=== PATIENT | female | born 1995 | race American Indian/Alaskan Native ===

== ENCOUNTER 2017-06-08 22:49 | Emergency (ER) | payer SELFPAY ==
[2017-06-08 22:49] VITALS: BMI 32.9
== END 2017-06-08 23:23 | disposition left against medical advice (07) ==
LOC: ED 22:49
DX: Z02.89 Encounter for other administrative examinations (principal); R10.9 Unspecified abdominal pain

== ENCOUNTER 2017-08-18 14:11 | Emergency (ER) | payer MEDICAID ==
[2017-08-18 14:42] VITALS: BMI 32.1
[2017-08-18 14:43] VITALS: RESP 18; O2SAT 100
[2017-08-18] MEDS ORDERED: Sodium Chloride 0.9% 500 ML IV STA (14:47)
[2017-08-18] MEDS ORDERED: DiphenhydrAMINE 50 mg/ml Inj IVP STA (14:47)
--- NOTE | 2017-08-18 14:48 | ED PDOC ---
Arrival/HPI - General Time Seen by Provider: 08/18/17 14:36 Historian: Patient - History of Present Illness Narrative History of Present Illness (Text): 08/18/17 15:01 22 yo female w/PMHx of asthma, pancreatitis come in for evaluation of retrosternal chest tightness developed since yesterday. Pt sts, " feels also dizzy little with tingling over my arms and legs". Pt sts, chest tightness constant since yesterday " feels like not enough air". Pt sts, " my mother and boyfriend in this hospital now, feels little nervous now". Otherwise, pt denies fever, chills, headache, visual changes, focal deficits, recent illness, neck pain, SOB, dyspnea, wheezing, cough, palpitation, diaphoresis, abd. pain, N/V/D , back pain. Ambulate to Ed for evaluation, appears comfortable, smiling, not in any apparent distress. Past Medical History - Provider Review Nursing Documentation Reviewed: Yes - Travel History Have you recently traveled outside [place] w/in the past 3 mons?: No - Tetanus Immunization Tetanus Immunization: Up to Date - Cardiac Hx Cardiac Disorders: No - Pulmonary Hx Respiratory Disorders: Yes Hx Asthma: Yes - Neurological Hx Neurological Disorder: No - HEENT Hx HEENT Disorder: No - Renal Hx Renal Disorder: No - Endocrine/Metabolic Hx Endocrine Disorders: No - Hematological/Oncological Hx Blood Disorders: No - Integumentary Hx Dermatological Disorder: No - Musculoskeletal/Rheumatological Hx Musculoskeletal Disorders: No - Gastrointestinal Hx Gastrointestinal Disorders: Yes Hx Pancreatitis: Yes - Genitourinary/Gynecological Hx Genitourinary Disorders: Yes (ovarian cyst) - Psychiatric Hx Psychophysiologic Disorder: Yes Hx Depression: Yes Hx Substance Use: No - Surgical History Hx Thyroidectomy: (cyst removal) - Anesthesia Hx Anesthesia: No Family/Social History - Physician Review Nursing Documentation Reviewed: Yes Family/Social History: No Known Family HX Smoking Status: Current Some Days Smoker Hx Alcohol Use: Yes (pt was drinking daily until last week) Hx Substance Use: No Allergies/Home Meds Allergies/Adverse Reactions: Allergies Penicillins Allergy (Verified 10/09/16 09:35) RASH Review of Systems - Review of Systems Constitutional: Normal Eyes: Normal ENT: Normal Respiratory: Normal. absent: SOB, Cough, Sputum, Wheezing Cardiovascular: Chest Pain. absent: Palpitations, Edema, Calf Pain, Syncope Gastrointestinal: Normal Genitourinary Female: Normal Musculoskeletal: Normal Skin: Normal Neurological: Normal Endocrine: Normal Hemo/Lymphatic: Normal Psychiatric: Normal Physical Exam Vital Signs Temp Pulse Resp BP Pulse Ox 08/18/17 18:00 98.6 F 80 18 138/80 100 08/18/17 16:11 98.6 F 80 18 138/80 100 08/18/17 14:20 98.4 F 79 18 138/90 100 Temperature: Afebrile Blood Pressure: Normal Pulse: Regular Respiratory Rate: Normal Appearance: Positive for: Well-Appearing, Non-Toxic, Comfortable Pain Distress: None Mental Status: Positive for: Alert and Oriented X 3 - Systems Exam Head: Present: Normocephalic Conjunctiva: Present: Normal Mouth: Present: Moist Mucous Membranes Pharnyx: No: ERYTHEMA, EXUDATE Neck: Present: Trachea Midline. No: JVD, Bruit (B/L) Respiratory/Chest: Present: Clear to Auscultation, Good Air Exchange. No: Respiratory Distress, Accessory Muscle Use Cardiovascular: Present: Regular Rate and Rhythm, Normal S1, S2. No: Murmurs, Irregular Rhythm Abdomen: Present: Normal Bowel Sounds. No: Tenderness, Distention, Peritoneal Signs, Rebound, Guarding Back: No: CVA Tenderness Upper Extremity: Present: Normal ROM, NORMAL PULSES. No: Deformity Lower Extremity: Present: NORMAL PULSES, Normal ROM. No: Edema, CALF TENDERNESS , Swelling, Deformity Neurological: Present: GCS=15, Speech Normal, Normal Sensory Function, Norm Deep Tendon Reflexes Skin: Present: Warm, Dry, Normal Color. No: Rashes Psychiatric: Present: Alert, Oriented x 3 Medical Decision Making ED Course and Treatment: 08/18/17 17:10 DDimer results review and appears high. Blood work results review with pt, explained, CTA r/o PE ordered. Delay in pt's evaluation due to delay in imaging. Pt was able to underwent imaging at 19:13, although refuses to wait for results. Pt sts, " feels better " and wish to go home now without results. Risk of leaving discussed with patient including complication of unknown condition and/or sudden . Pt was given time to ask question and received complete answer. Pt accepts risks and wish to F?u with her PMD for further evaluation and tx. Pt advised to return to ED at any time to complete evaluation. Pt is stable for discharge at this time AMA. - Lab Interpretations Lab Results: 08/18/17 15:10 08/18/17 15:10 Lab Results 08/18/17 15:10: D-Dimer, Quantitative 3.35 H 08/18/17 15:10: Sodium 142, Potassium 4.3, Chloride 104, Carbon Dioxide 31, Anion Gap 11, BUN 12, Creatinine 0.9, Est GFR ( Amer) > 60, Est GFR (Non- Af Amer) > 60, Random Glucose 68 L, Calcium 9.4, Total Bilirubin 0.4, AST 32, ALT 25, Alkaline Phosphatase 69, Lactate Dehydrogenase 494, Total Creatine Kinase 174, Troponin I < 0.01, Total Protein 7.2, Albumin 4.4, Globulin 2.9, Albumin/Globulin Ratio 1.5 08/18/17 15:10: PT 11.4, INR 1.06, APTT 28.3 08/18/17 15:10: WBC 5.4 D, RBC 5.01, Hgb 13.4, Hct 41.2, MCV 82.2, MCH 26.7, MCHC 32.5, RDW 13.1, Plt Count 259, MPV 9.9, Gran % 41.5 L, Lymph % (Auto) 43.6 H, [place] % (Auto) 6.6 H, Eos % (Auto) 8.1 H, Baso % (Auto) 0.2, Gran # 2.26, Lymph # 2.4, [place] # 0.4, Eos # 0.4, Baso # 0.01 08/18/17 14:51: Urine Color Yellow, Urine Appearance Clear, Urine pH 6.0, Ur Specific [place] >= 1.030, Urine Protein Trace H, Urine Glucose (UA) Negative, Urine Ketones Negative, Urine Blood Negative, Urine Nitrate Negative, Urine Bilirubin Negative, Urine Urobilinogen 1.0 H, Ur Leukocyte Esterase Negative, Urine RBC Negative, Urine WBC Negative, Ur Epithelial Cells 10 - 12, Urine Other Mucus, Urine HCG, Qual Negative - RAD Interpretation Narrative RAD Interpretations (Text): 08/18/17 21:35 [facility] Division of Radiology [address] [place] [address] Tel. no. Patient Name: DELVIN SAN Pt. Address: [address] [place] [address] Rec #: [id number] [place] [address]: Chuyita Sandhu Pt CELL Order Location: ED : 1995 Female Age: 22 Order #: [id number] Reason for exam: chest tightness CT Scan ANGIO CHEST PE PROTOCOL Exam Date: 08/18/17 This imaging exam was performed at [facility] EXAM: CT Angiography Chest With Intravenous Contrast EXAM DATE/TIME: 08/18/2017 5:09 PM CLINICAL HISTORY: 22 years old, female; Pain; Chest pain; Type not specified; Additional info: Chest tightness TECHNIQUE: Axial computed tomographic angiography images of the chest with intravenous contrast using pulmonary embolism protocol. All CT scans at this facility use one or more dose reduction techniques, viz.: automated exposure control; ma/kV adjustment per patient size (including targeted exams where dose is matched to indication; i.e. head); or iterative reconstruction technique. MIP reconstructed images were created and reviewed. Coronal and sagittal reformatted images were created and reviewed. CONTRAST: 100 mL of OMNI 350 administered intravenously. COMPARISON: Recent chest radiographs of 08/18/2017 4:09 PM FINDINGS: LIMITATIONS: Mild respiratory motion artifact. PULMONARY ARTERIES: Contrast opacification of the pulmonary arteries is adequate, and there are no filling defects seen to suggest pulmonary embolism. AORTA: Exam is nondiagnostic for the detection of aortic dissection because of suboptimal enhancement of the aorta. LUNGS:No evidence of significant focal consolidation/infiltrate in the lungs. No evidence of diffuse pulmonary vascular congestion. Patent large airways. PLEURAL SPACE: No pneumothorax or pleural effusions seen. HEART: No evidence of significant pericardial effusion. BONES/JOINTS: No acute bony abnormality identified. SOFT TISSUES: No acute abnormality of the visualized soft tissues seen. LYMPH NODES: No evidence of diffuse lymphadenopathy. PANCREAS: Extensive tiny calcifications are seen in the pancreas diffusely, compatible with chronic pancreatitis. Best seen on image 203 of series 3, there is a suspected 2.5 x 1 cm cystic/fluid density masslike area in the proximal pancreatic body, which could represent a small pseudocyst. There is no definite CT evidence of acute pancreatitis. IMPRESSION: - No evidence of pulmonary embolism or other significant acute abnormality in the chest. - Findings compatible with chronic pancreatitis. Suspected 2.5 x 1 cm cystic mass in the proximal pancreas, which could represent a pseudocyst. Consider followup CT abdomen and pelvis for further evaluation, not necessarily on an emergent basis. - See above for remaining findings. Dictated By: Chasidy Obrien MD Dictated Date/Time: 08/18/172039 Signed By: Chasidy Obrien MD Date Signed: 2039 Transcribed By: ALEX Transcribe Date/Time : 08/18/172039 [facility]/MAXINE Radiology Orders: 08/18/17 14:46 CHEST TWO VIEWS (PA/LAT) [RAD] Stat 08/18/17 17:09 ANGIO CHEST PE PROTOCOL [CT] Stat IMPRESSION: No active disease. - EKG Interpretation EKG Interpretation (Text): 08/18/17 14:18 SR@83/min, NAD, no acute T wave or ST-T changes. - Medication Orders Current Medication Orders: Discontinued Medications Diphenhydramine HCl (Benadryl) 25 mg IVP STAT STA Stop: 08/18/17 14:48 Last Admin: 08/18/17 15:10 Dose: 25 mg IVP Administration Document 08/18/17 15:10 AB (Rec: 08/18/17 15:10 [id number] Charges for Administration # of IVP Administrations 1 Sodium Chloride (Sodium Chloride 0.9%) 500 mls @ 999 mls/hr IV .Q31M STA Stop: 08/18/17 15:17 Last Admin: 08/18/17 15:07 Dose: 999 mls/hr eMAR Start Stop Document 08/18/17 15:07 AB (Rec: 08/18/17 15:08 [id number] Intravenous Solution Start Date 08/18/17 Start Time 15:08 End Date 08/18/17 End time 15:38 Total Infusion Time 30 Ketorolac Tromethamine (Toradol) 30 mg IVP STAT STA Stop: 08/18/17 14:48 Last Admin: 08/18/17 15:08 Dose: 30 mg MAR Pain Assessment Document 08/18/17 15:08 AB (Rec: 08/18/17 15:09 [id number] Pain Reassessment Is this a pain reassessment? No Sleep Is patient sleeping during reassessment? No Presence of Pain Presence of Pain Yes Pain Scale Used Pain Scale Used Numeric Location Upper or Lower Upper Description Description Intermittent Intensity of Pain at present 8 IVP Administration Document 08/18/17 15:08 AB (Rec: 08/18/17 15:09 [id number]) Charges for Administration # of IVP Administrations 1 Re-Assess: MAR Pain Assessment Document 08/18/17 16:08 AB (Rec: 08/18/17 16:58 AB [id number]) Pain Reassessment Is this a pain reassessment? Yes Sleep Is patient sleeping during reassessment? No Presence of Pain Presence of Pain No Pain Scale Used Pain Scale Used Numeric Disposition/Present on Arrival - Present on Arrival Any Indicators Present on Arrival: No History of DVT/PE: No History of Uncontrolled Diabetes: No Urinary Catheter: No History Surgical Site Infection Following: None - Disposition Have Diagnosis and Disposition been Completed?: Yes Diagnosis: Chest pain Disposition: AGAINST MEDICAL ADVICE Disposition Time: 19:46 Condition: STABLE Discharge Instructions (ExitCare): Chest Pain (ED) Additional Instructions: return to ED at any time to complete evaluation and treatment as need Referrals: [facility] [place]] - Follow up with primary Forms: [employer] (Vincentian)
[2017-08-18 14:57] LABS: URINE BILIRUBIN NEGATIVE (NEGATIVE); URINE BLOOD NEGATIVE (NEGATIVE); URINE GLUCOSE (UA) NEGATIVE (NEGATIVE); URINE KETONE NEGATIVE (NEGATIVE); URINE LEUKOCYTE ESTERASE NEGATIVE Leu/uL (NEGATIVE); URINE PROTEIN TRACE mg/dL (<30 mg/dL)
[2017-08-18 14:58] LABS: URINE APPEARANCE CLEAR (CLEAR); URINE COLOR YELLOW (YELLOW)
[2017-08-18 15:13] LABS: URINE RBC NEGATIVE /hpf (0-2); URINE WBC NEGATIVE /hpf (0-6)
[2017-08-18 15:26] LABS: BASO # 0.01 K/mm3 (0.0-2.0); BASO % 0.2 % (0.0-3.0); EOS # 0.4 (0.0-0.7); EOS % 8.1 % (1.5-5.0); GRAN # 2.26 (1.4-6.5); GRAN % 41.5 % (50.0-68.0); HEMATOCRIT 41.2 % (36.0-48.0); LYMPH # 2.4 (1.2-3.4); LYMPH % 43.6 % (22.0-35.0); MEAN CELL VOLUME 82.2 fl (80.0-105.0); MEAN CORPUSCULAR HEMOGLOBIN 26.7 pg (25.0-35.0); MEAN CORPUSCULAR HGB CONC 32.5 g/dl (31.0-37.0); MEAN PLATELET VOLUME 9.9 fl (7.0-11.0); MONO # 0.4 (0.1-0.6); MONO % 6.6 % (1.0-6.0); RED CELL DISTRIBUTION WIDTH 13.1 % (11.5-14.5); WHITE BLOOD COUNT 5.4 10^3/ul (4.5-11.0)
[2017-08-18 15:27] LABS: ALB/GLOB RATIO 1.5 (1.1-1.8); ALKALINE PHOSPHATASE 69 U/L (38-126); ALT/SGPT 25 U/L (7-56); AST/SGOT 32 U/L (14-36); BILIRUBIN,TOTAL 0.4 mg/dL (0.2-1.3); BLOOD UREA NITROGEN 12 mg/dL (7-21); CALCIUM 9.4 mg/dL (8.4-10.5); CARBON DIOXIDE 31 mmol/L (21-33); CHLORIDE 104 mmol/L (98-107); GFR AFRICAN-AMERICAN > 60; GLUCOSE,RANDOM 68 mg/dL (70-110); POTASSIUM 4.3 mmol/L (3.6-5.0); SODIUM 142 mmol/L (132-148); TOTAL PROTEIN 7.2 g/dL (5.8-8.3)
[2017-08-18 15:29] LABS: INR 1.06 (0.93-1.08); PARTIAL THROMBOPLASTIN TIME 28.3 Seconds (23.7-30.8)
[2017-08-18 15:39] LABS: TROPONIN I < 0.01 ng/mL
--- NOTE | 2017-08-18 16:38 | RAD ---
HISTORY: pain COMPARISON: 06/20/2016 TECHNIQUE: Chest PA and lateral FINDINGS: LUNGS: No active pulmonary disease. PLEURA: No significant pleural effusion identified. No pneumothorax apparent. CARDIOVASCULAR: Normal. OSSEOUS STRUCTURES: No significant abnormalities. VISUALIZED UPPER ABDOMEN: Normal. OTHER FINDINGS: None. IMPRESSION: No active disease.
[2017-08-18] MEDS ORDERED: Iohexol 350 MG/100 ML VIAL ONE (19:04)
[2017-08-18 19:20] VITALS: BP 138/80; PULSE 80; TEMP 98.6
--- NOTE | 2017-08-18 20:41 | CT ---
EXAM: CT Angiography Chest With Intravenous Contrast EXAM DATE/TIME: 08/18/2017 5:09 PM CLINICAL HISTORY: 22 years old, female; Pain; Chest pain; Type not specified; Additional info: Chest tightness TECHNIQUE: Axial computed tomographic angiography images of the chest with intravenous contrast using pulmonary embolism protocol. All CT scans at this facility use one or more dose reduction techniques, viz.: automated exposure control; ma/kV adjustment per patient size (including targeted exams where dose is matched to indication; i.e. head); or iterative reconstruction technique. MIP reconstructed images were created and reviewed. Coronal and sagittal reformatted images were created and reviewed. CONTRAST: 100 mL of OMNI 350 administered intravenously. COMPARISON: Recent chest radiographs of 08/18/2017 4:09 PM FINDINGS: LIMITATIONS: Mild respiratory motion artifact. PULMONARY ARTERIES: Contrast opacification of the pulmonary arteries is adequate, and there are no filling defects seen to suggest pulmonary embolism. AORTA: Exam is nondiagnostic for the detection of aortic dissection because of suboptimal enhancement of the aorta. LUNGS:No evidence of significant focal consolidation/infiltrate in the lungs. No evidence of diffuse pulmonary vascular congestion. Patent large airways. PLEURAL SPACE: No pneumothorax or pleural effusions seen. HEART: No evidence of significant pericardial effusion. BONES/JOINTS: No acute bony abnormality identified. SOFT TISSUES: No acute abnormality of the visualized soft tissues seen. LYMPH NODES: No evidence of diffuse lymphadenopathy. PANCREAS: Extensive tiny calcifications are seen in the pancreas diffusely, compatible with chronic pancreatitis. Best seen on image 203 of series 3, there is a suspected 2.5 x 1 cm cystic/fluid density masslike area in the proximal pancreatic body, which could represent a small pseudocyst. There is no definite CT evidence of acute pancreatitis. IMPRESSION: - No evidence of pulmonary embolism or other significant acute abnormality in the chest. - Findings compatible with chronic pancreatitis. Suspected 2.5 x 1 cm cystic mass in the proximal pancreas, which could represent a pseudocyst. Consider followup CT abdomen and pelvis for further evaluation, not necessarily on an emergent basis. - See above for remaining findings.
--- NOTE | 2017-08-19 11:08 | CARD ---
APPROVED REPORT EKG Measurement Heart [id number] [id number] <Conclusion> Normal sinus rhythm Normal ECG
== END 2017-08-18 19:55 | disposition left against medical advice (07) ==
LOC: ED 14:11
DX: R07.9 Chest pain, unspecified (principal)
CPT/HCPCS: 71020; 71275; 80053; 81001; 82550; 83615; 84484; 84703; 85025; 85378; 85610; 85730; 93005; 96374; 96375; 99284; J1200; J1885; J7040; Q9967

== ENCOUNTER 2018-01-26 22:34 | Emergency (ER) | payer MEDICAID ==
[2018-01-26 22:34] VITALS: BMI 32.1
--- NOTE | 2018-01-26 22:44 | ED PDOC ---
Arrival/HPI - General Chief Complaint: Shortness Of Breath Time Seen by Provider: 01/26/18 22:42 Historian: Patient - History of Present Illness Narrative History of Present Illness (Text): 01/26/18 22:44 Estephanie Bojorquez is a 22 year old female, whose past medical history includes asthma and ovarian cyst, who presents to the Emergency department complaining of cough. Patient states she has been experiencing wheezing with associated cough, productive at times, which she reports to previous episodes of asthma. Patient states she used her inhaler pump with minimal relief. Patient also reports headache discomfort . Patient denies any fever, chills, chest pain, nausea, vomiting, back pain, neck pain, or any other complaints. Time/Duration: Other (tonight) Symptom Onset: Gradual Symptom Course: Unchanged Context: Home Past Medical History - Provider Review Nursing Documentation Reviewed: Yes - Tetanus Immunization Tetanus Immunization: Up to Date - Cardiac Hx Cardiac Disorders: No - Pulmonary Hx Respiratory Disorders: Yes Hx Asthma: Yes - Neurological Hx Neurological Disorder: No - HEENT Hx HEENT Disorder: No - Renal Hx Renal Disorder: No - Endocrine/Metabolic Hx Endocrine Disorders: No - Hematological/Oncological Hx Blood Disorders: No - Integumentary Hx Dermatological Disorder: No - Musculoskeletal/Rheumatological Hx Musculoskeletal Disorders: No - Gastrointestinal Hx Gastrointestinal Disorders: Yes Hx Pancreatitis: Yes - Genitourinary/Gynecological Hx Genitourinary Disorders: Yes (ovarian cyst) - Psychiatric Hx Psychophysiologic Disorder: Yes Hx Depression: Yes Hx Substance Use: No - Surgical History Hx Thyroidectomy: (cyst removal) - Anesthesia Hx Anesthesia: No Family/Social History - Physician Review Nursing Documentation Reviewed: Yes Family/Social History: No Known Family HX Smoking Status: Current Some Days Smoker Hx Alcohol Use: Yes (pt was drinking daily until last week) Hx Substance Use: No Allergies/Home Meds Allergies/Adverse Reactions: Allergies Penicillins Allergy (Verified 10/09/16 09:35) RASH Review of Systems - Physician Review All systems were reviewed & negative as marked: Yes - Review of Systems Constitutional: Normal. absent: Fevers Eyes: Normal ENT: Normal Respiratory: Cough, Sputum, Wheezing Cardiovascular: Normal. absent: Chest Pain Gastrointestinal: Abdominal Pain. absent: Diarrhea, Nausea, Vomiting Genitourinary Female: Normal. absent: Dysuria, Frequency, Hematuria, Urine Output Changes Musculoskeletal: Normal. absent: Back Pain, Neck Pain Skin: Normal. absent: Rash Neurological: Normal. absent: Headache, Dizziness Endocrine: Normal Hemo/Lymphatic: Normal Psychiatric: Normal Physical Exam Vital Signs Reviewed: Yes Vital Signs Temp Pulse Resp BP Pulse Ox 01/27/18 00:08 92 H 18 128/84 100 01/26/18 22:53 18 01/26/18 22:46 98.3 F 90 18 144/106 H 99 Temperature: Afebrile Blood Pressure: Normal Pulse: Regular Respiratory Rate: Normal Appearance: Positive for: Well-Appearing, Non-Toxic, Comfortable Pain Distress: None Mental Status: Positive for: Alert and Oriented X 3 - Systems Exam Head: Present: Atraumatic, Normocephalic Pupils: Present: PERRL Extroacular Muscles: Present: EOMI Conjunctiva: Present: Normal Ears: Present: Normal, NORMAL TM, Normal Canal. No: Erythema, TM Bulging, Fluid , TM Perf Mouth: Present: Moist Mucous Membranes Pharnyx: Present: Normal. No: ERYTHEMA, EXUDATE, TONSILS ENLARGED, Peritonsilar Swelling, Uvular Deviation, Muffled/Hoarse Voice, Strider, Soft Palate/Uvular Edema Nose (External): Present: Atraumatic Nose (Internal): Present: Normal Inspection Neck: Present: Normal Range of Motion. No: Meningeal Signs, MIDLINE TENDERNESS , Paraspinal Tenderness Respiratory/Chest: Present: Wheezes (Mild end expiratory wheezing). No: Respiratory Distress, Accessory Muscle Use Cardiovascular: Present: Regular Rate and Rhythm, Normal S1, S2. No: Murmurs Abdomen: Present: Normal Bowel Sounds. No: Tenderness, Distention, Peritoneal Signs Back: Present: Normal Inspection Upper Extremity: Present: Normal Inspection. No: Cyanosis, Edema Lower Extremity: Present: Normal Inspection. No: Edema Neurological: Present: GCS=15, CN II-XII Intact, Speech Normal Skin: Present: Warm, Dry, Normal Color. No: Rashes Psychiatric: Present: Alert, Oriented x 3, Normal Insight, Normal Concentration Medical Decision Making ED Course and Treatment: 01/26/18 22:44 Impression: 22 year old female complaining of wheezing, cough, and headache discomfort. Differential Diagnosis included but are not limited to: asthma vs. bronchitis Plan: -- EKG -- Chest X-ray -- Duoneb -- Toradol -- Reassess and disposition Progress Notes: Reviewed EKG, NSR at 96 bpm[address] Non-specific ST/T wave changes. 01/27/18 00:22 Chest X-ray reviewed, shows no acute processes. - RAD Interpretation Radiology Orders: 01/26/18 22:50 CHEST PORTABLE [RAD] Stat Bleach Maker: Radiologist - EKG Interpretation Interpreted by ED Physician: Yes Type: 12 lead EKG - Medication Orders Current Medication Orders: Discontinued Medications Albuterol/Ipratropium (Duoneb 3 Mg/0.5 Mg (3 Ml) Ud) 3 ml IH ONCE STA Stop: 01/26/18 22:52 Last Admin: 01/26/18 22:58 Dose: 3 ml Azithromycin (Zithromax) 500 mg PO ONCE STA PRN Reason: Protocol Stop: 01/27/18 00:54 Last Admin: 01/27/18 01:00 Dose: 500 mg Ketorolac Tromethamine (Toradol) 30 mg IVP ONCE ONE Stop: 01/26/18 22:52 Last Admin: 01/26/18 23:46 Dose: 30 mg MAR Pain Assessment Document 01/26/18 23:46 (Rec: 01/27/18 00:05 GUERTIA [id number]) Pain Reassessment Is this a pain reassessment? Yes Sleep Is patient sleeping during reassessment? No Presence of Pain Presence of Pain Yes Pain Scale Used Pain Scale Used Numeric Location Upper or Lower Upper Pain Location Body Site Chest Description Description Intermittent Duration 3 days. IVP Administration Document 01/26/18 23:46 (Rec: 01/27/18 00:05 [id number]) Charges for Administration # of IVP Administrations 1 - Scribe Statement The provider has reviewed the documentation as recorded by the Scribherber Correa All medical record entries made by the Scribe were at my direction and personally dictated by me. I have reviewed the chart and agree that the record accurately reflects my personal performance of the history, physical exam, medical decision making, and the department course for this patient. I have also personally directed, reviewed, and agree with the discharge instructions and disposition. Disposition/Present on Arrival - Present on Arrival Any Indicators Present on Arrival: No History of DVT/PE: No History of Uncontrolled Diabetes: No Urinary Catheter: No History of Decub. Ulcer: No History Surgical Site Infection Following: None - Disposition Have Diagnosis and Disposition been Completed?: Yes Diagnosis: Asthma, Bronchitis, Headache Disposition: HOME/ ROUTINE Disposition Time: 00:48 Patient Plan: Discharge Condition: GOOD Discharge Instructions (ExitCare): Tension Headache, Asthma, Adult (DC), Acute Bronchitis Additional Instructions: Take meds as prescribed/follow up with your doctor this week Prescriptions: Acetaminophen/Butalbital/Caf [Fioricet] 1 tab PO Q6 PRN #12 tab PRN Reason: Headache Fluticasone Propionate [Flovent Hfa] 0.044 mg IH BID #1 unit Albuterol HFA [Ventolin HFA 90 mcg/actuation (8 g)] 2 puff IH [id number] PRN #1 puff PRN Reason: Wheezing Azithromycin [Zithromax] 250 mg PO DAILY #4 tab Referrals: Chelsea Sanchez MD [Primary Care Provider] - Follow up with primary Forms: [employer] (Maltese)
[2018-01-26 22:47] VITALS: RESP 18; TEMP 98.3
[2018-01-26] MEDS ORDERED: Albuterol-Ipratrop 3 mg / 0.5 (3 ml) UD IH STA (22:51)
[2018-01-27 00:09] VITALS: BP 128/84; PULSE 92; O2SAT 100
--- NOTE | 2018-01-27 10:25 | RAD ---
HISTORY: Cough. COMPARISON: 08/18/2017 FINDINGS: LUNGS: No active pulmonary disease. PLEURA: No significant pleural effusion identified, no pneumothorax apparent. CARDIOVASCULAR: Normal. OSSEOUS STRUCTURES: No significant abnormalities. VISUALIZED UPPER ABDOMEN: Normal. OTHER FINDINGS: None. IMPRESSION: No active disease. No significant interval change compared to the prior examination(s).
--- NOTE | 2018-01-27 11:23 | CARD ---
APPROVED REPORT EKG Measurement Heart [id number] 150P34 [id number] <Conclusion> Normal sinus rhythm Poor R Progression V1-V3.
== END 2018-01-27 01:00 | disposition home or self-care (01) ==
LOC: ED 22:34
DX: J45.909 Unspecified asthma, uncomplicated (principal); R51 Headache; F17.200 Nicotine dependence, unspecified, uncomplicated
CPT/HCPCS: 71045; 93005; 96374; 99284; J1885

== ENCOUNTER 2018-05-25 15:50 | Emergency (ER) | payer MEDICAID ==
[2018-05-25 16:06] VITALS: BMI 26.8
[2018-05-25 16:09] VITALS: RESP 18
--- NOTE | 2018-05-25 16:13 | ED PDOC ---
Arrival/HPI - General Chief Complaint: Female Genitourinary Time Seen by Provider: 05/25/18 16:05 Historian: Patient - History of Present Illness Narrative History of Present Illness (Text): 05/25/18 16:16 A 23 year old female, whose past medical history includes ovary cysts, presents to the emergency department complaining of vaginal bleeding and suprapubic pain for the past 2 months. Patient reports she called her rn neurology, however was told she couldn't have an appointment until early June, so patient decided to come to the ER instead. Patient notes also experiencing some fatigue, but denies any nausea, vomiting, dizziness, lightheadedness, any urinary symptoms, or any other complaints at this time. Reports hx of dermoid cyst, No PMD 05/25/18 21:44 Time/Duration: > month (2 months) Symptom Onset: Sudden Symptom Course: Unchanged Past Medical History - Provider Review Nursing Documentation Reviewed: Yes - Tetanus Immunization Tetanus Immunization: Up to Date - Cardiac Hx Cardiac Disorders: No - Pulmonary Hx Respiratory Disorders: Yes Hx Asthma: Yes - Neurological Hx Neurological Disorder: No - HEENT Hx HEENT Disorder: No - Renal Hx Renal Disorder: No - Endocrine/Metabolic Hx Endocrine Disorders: Yes Other/Comment: THYROID SURGERY - Hematological/Oncological Hx Blood Disorders: No - Integumentary Hx Dermatological Disorder: No - Musculoskeletal/Rheumatological Hx Musculoskeletal Disorders: No - Gastrointestinal Hx Gastrointestinal Disorders: Yes Hx Pancreatitis: Yes - Genitourinary/Gynecological Hx Genitourinary Disorders: Yes (ovarian cyst) Other/Comment: PCOS - Psychiatric Hx Psychophysiologic Disorder: Yes Hx Depression: Yes Hx Substance Use: No - Surgical History Hx Thyroidectomy: (cyst removal) - Anesthesia Hx Anesthesia: No Family/Social History - Physician Review Nursing Documentation Reviewed: Yes Family/Social History: No Known Family HX Smoking Status: Current Some Days Smoker Hx Alcohol Use: Yes (pt was drinking daily until last week) Hx Substance Use: No Allergies/Home Meds Allergies/Adverse Reactions: Allergies Penicillins Allergy (Verified 05/25/18 16:07) RASH Home Medications: Home Meds Medication Instructions Recorded Confirmed No Known Home Med 05/25/18 05/25/18 Review of Systems - Review of Systems Constitutional: Fatigue Eyes: absent: Vision Changes ENT: absent: Hearing Changes, Sore Throat Respiratory: absent: SOB Cardiovascular: absent: Chest Pain Gastrointestinal: Abdominal Pain (suprapubic region). absent: Nausea, Vomiting Genitourinary Female: Vaginal Bleeding. absent: Dysuria, Frequency, Hematuria, Urine Output Changes Musculoskeletal: absent: Back Pain, Neck Pain, Myalgias Neurological: absent: Dizziness (and no lightheadedness), Focal Weakness Psychiatric: absent: Anxiety Physical Exam Vital Signs Reviewed: Yes Vital Signs Temp Pulse Resp BP Pulse Ox 05/25/18 18:00 98.1 F 72 18 124/70 99 05/25/18 16:07 98 F 65 18 125/78 98 Temperature: Afebrile Blood Pressure: Normal Pulse: Regular Respiratory Rate: Normal Appearance: Positive for: Well-Appearing, Non-Toxic, Comfortable Pain Distress: None Mental Status: Positive for: Alert and Oriented X 3 - Systems Exam Head: Present: Atraumatic, Normocephalic Pupils: Present: PERRL Extroacular Muscles: Present: EOMI Conjunctiva: Present: Normal Mouth: Present: Moist Mucous Membranes Neck: Present: Normal Range of Motion Respiratory/Chest: Present: Clear to Auscultation, Good Air Exchange. No: Respiratory Distress, Accessory Muscle Use Cardiovascular: Present: Regular Rate and Rhythm, Normal S1, S2. No: Murmurs Abdomen: No: Tenderness, Distention, Peritoneal Signs Back: Present: Normal Inspection Upper Extremity: Present: Normal Inspection. No: Cyanosis, Edema Lower Extremity: Present: Normal Inspection. No: Edema Neurological: Present: GCS=15, CN II-XII Intact, Speech Normal Skin: Present: Warm, Dry, Normal Color. No: Rashes Psychiatric: Present: Alert, Oriented x 3, Normal Insight, Normal Concentration Medical Decision Making ED Course and Treatment: 05/25/18 16:20 Impression: 23 year old female with vaginal bleeding and suprapubic pain. Physical examination is normal, pelvic examination deffered. Plan: -- Transvaginal Ultrasound -- Labs -- POC Urine -- Urinalysis -- Toradol -- Reassess and disposition Progress Notes: 05/25/18 17:12 HISTORY: Suprapubic pain, vaginal bleeding. LMP 04/20/2018. Cycles are regular COMPARISON: 07/15/2016. Summary of findings on the comparison examination:3.4 x 2.8 x 2.2 centimeter left dermoid cyst. No evidence of ovarian torsion TECHNIQUE: Transvaginal only. Real -time technique with 2D, duplex and color Doppler FINDINGS: UTERUS: Measures 2.9 x 3.6 x 5.8 cm. Normal in size and appearance. No fibroid or other mass lesion seen. ENDOMETRIUM: Measures 8.4 mm in diameter. No ultrasound findings to suggest gestational sac, fluid, debris, mass or polyp or other pathologic process within the endometrium. CERVIX: No cervical abnormality identified. RIGHT OVARY: Measures 2.1 x 2 x 4.7 cm. No solid mass. Normal flow. LEFT OVARY: Measures 4.8 x 5.6 cm. Solid echogenic mass 5.9 x 5.6 x 4.8 cm consistent with known dermoid Normal flow. FREE FLUID: No significant free fluid noted. OTHER FINDINGS: None. IMPRESSION: No acute findings related to/accounting for the clinical presentation. Additional benign and/or incidental findings described above. 05/25/18 17:14 Hgb WNL. negative. Patient has follow-up in june with her rn neurology. She was instructed to follow-up with her to discuss option for irregular vaginal bleeding. - Lab Interpretations Lab Results: 05/25/18 16:20 05/25/18 16:20 Lab Results 05/25/18 16:20: Beta HCG, Quant < 2.39 05/25/18 16:20: Sodium 139, Potassium 4.3, Chloride 104, Carbon Dioxide 25, Anion Gap 15, BUN 14, Creatinine 0.8, Est GFR ( Amer) > 60, Est GFR (Non- Af Amer) > 60, Random Glucose 107, Calcium 9.2, Total Bilirubin 0.4, AST 22, ALT 30, Alkaline Phosphatase 65, Total Protein 6.9, Albumin 4.0, Globulin 2.8, Albumin/Globulin Ratio 1.4, Lipase 71 05/25/18 16:20: WBC 4.2 L D, RBC 4.77, Hgb 12.8, Hct 38.9, MCV 81.6, MCH 26.8, MCHC 32.9, RDW 12.8, Plt Count 223, MPV 9.6, Gran % 40.5 L, Lymph % (Auto) 49.6 H, [place] % (Auto) 6.3 H, Eos % (Auto) 3.4, Baso % (Auto) 0.2, Gran # 1.68, Lymph # (Auto) 2.1, [place] # (Auto) 0.3, Eos # (Auto) 0.1, Baso # (Auto) 0.01 I have reviewed the lab results: Yes - RAD Interpretation Radiology Orders: 05/25/18 16:07 TRANSVAGINAL [US] Stat - Medication Orders Current Medication Orders: Discontinued Medications Ketorolac Tromethamine (Toradol) 30 mg IM STAT STA Stop: 05/25/18 16:07 - Scribe Statement The provider has reviewed the documentation as recorded by the Rudy Carver Provider Scribe Attestation: All medical record entries made by the Rudy were at my direction and personally dictated by me. I have reviewed the chart and agree that the record accurately reflects my personal performance of the history, physical exam, medical decision making, and the department course for this patient. I have also personally directed, reviewed, and agree with the discharge instructions and disposition. Disposition/Present on Arrival - Present on Arrival Any Indicators Present on Arrival: No History of DVT/PE: No History of Uncontrolled Diabetes: No Urinary Catheter: No History of Decub. Ulcer: No History Surgical Site Infection Following: None - Disposition Have Diagnosis and Disposition been Completed?: Yes Diagnosis: Dermoid cyst, Irregular menses Disposition: HOME/ ROUTINE Disposition Time: 17:13 Patient Plan: Discharge Condition: GOOD Discharge Instructions (ExitCare): Absent or Irregular Periods Additional Instructions: Follow-up with your rn neurology in June as previously scheduled. Return to ED if condition worsens. Forms: [employer] (Sinhala)
[2018-05-25 16:26] LABS: BASO # 0.01 K/mm3 (0.0-2.0); BASO % 0.2 % (0.0-3.0); EOS # 0.1 (0.0-0.7); EOS % 3.4 % (1.5-5.0); GRAN # 1.68 (1.4-6.5); GRAN % 40.5 % (50.0-68.0); HEMOGLOBIN 12.8 g/dL (12.0-16.0); LYMPH # 2.1 (1.2-3.4); LYMPH % 49.6 % (22.0-35.0); MEAN CELL VOLUME 81.6 fl (80.0-105.0); MEAN CORPUSCULAR HEMOGLOBIN 26.8 pg (25.0-35.0); MEAN CORPUSCULAR HGB CONC 32.9 g/dl (31.0-37.0); MEAN PLATELET VOLUME 9.6 fl (7.0-11.0); MONO # 0.3 (0.1-0.6); MONO % 6.3 % (1.0-6.0); RBC 4.77 10^6/uL (3.5-6.1); RED CELL DISTRIBUTION WIDTH 12.8 % (11.5-14.5); WHITE BLOOD COUNT 4.2 10^3/ul (4.5-11.0)
[2018-05-25 16:36] LABS: ALB/GLOB RATIO 1.4 (1.1-1.8); ALT/SGPT 30 U/L (7-56); AST/SGOT 22 U/L (14-36); BLOOD UREA NITROGEN 14 mg/dL (7-21); CALCIUM 9.2 mg/dL (8.4-10.5); GFR AFRICAN-AMERICAN > 60; GFR NON-AFRICAN AMERICAN > 60; LIPASE 71 U/L (23-300)
--- NOTE | 2018-05-25 17:11 | US ---
Date of service: 05/25/2018 HISTORY: Suprapubic pain, vaginal bleeding. LMP 04/20/2018. Cycles are regular COMPARISON: 07/15/2016. Summary of findings on the comparison examination:3.4 x 2.8 x 2.2 centimeter left dermoid cyst. No evidence of ovarian torsion TECHNIQUE: Transvaginal only. Real -time technique with 2D, duplex and color Doppler FINDINGS: UTERUS: Measures 2.9 x 3.6 x 5.8 cm. Normal in size and appearance. No fibroid or other mass lesion seen. ENDOMETRIUM: Measures 8.4 mm in diameter. No ultrasound findings to suggest gestational sac, fluid, debris, mass or polyp or other pathologic process within the endometrium. CERVIX: No cervical abnormality identified. RIGHT OVARY: Measures 2.1 x 2 x 4.7 cm. No solid mass. Normal flow. LEFT OVARY: Measures 4.8 x 5.6 cm. Solid echogenic mass 5.9 x 5.6 x 4.8 cm consistent with known dermoid Normal flow. FREE FLUID: No significant free fluid noted. OTHER FINDINGS: None. IMPRESSION: No acute findings related to/accounting for the clinical presentation. Additional benign and/or incidental findings described above.
[2018-05-25 19:15] VITALS: BP 124/70; PULSE 72; TEMP 98.1; O2SAT 99
== END 2018-05-25 18:00 | disposition home or self-care (01) ==
LOC: ED 15:50
DX: N92.6 Irregular menstruation, unspecified (principal); D27.1 Benign neoplasm of left ovary

== ENCOUNTER 2018-08-23 19:44 | Emergency (ER) | payer MEDICAID ==
[2018-08-23 20:13] VITALS: RESP 18
[2018-08-23 20:14] VITALS: BMI 31.6
[2018-08-23] MEDS ORDERED: Sodium Chloride 0.9% 1,000 ML IV STA (20:36)
[2018-08-23 21:08] LABS: BASO # 0.01 K/mm3 (0.0-2.0); BASO % 0.2 % (0.0-3.0); EOS # 0.2 (0.0-0.7); EOS % 3.5 % (1.5-5.0); GRAN # 2.29 (1.4-6.5); GRAN % 44.5 % (50.0-68.0); HEMOGLOBIN 12.6 g/dL (12.0-16.0); LYMPH # 2.4 (1.2-3.4); LYMPH % 46.8 % (22.0-35.0); MEAN CELL VOLUME 83.1 fl (80.0-105.0); MEAN CORPUSCULAR HEMOGLOBIN 26.6 pg (25.0-35.0); MEAN CORPUSCULAR HGB CONC 32.1 g/dl (31.0-37.0); MEAN PLATELET VOLUME 9.9 fl (7.0-11.0); MONO # 0.3 (0.1-0.6); PH,URINE 5.5 (4.7-8.0); RBC 4.73 10^6/uL (3.5-6.1); RED CELL DISTRIBUTION WIDTH 12.6 % (11.5-14.5); URINE BILIRUBIN NEGATIVE (NEGATIVE); URINE BLOOD NEGATIVE (NEGATIVE); URINE GLUCOSE (UA) NEGATIVE (NEGATIVE); URINE LEUKOCYTE ESTERASE NEGATIVE Leu/uL (NEGATIVE); URINE PROTEIN NEGATIVE mg/dL (<30 mg/dL); URINE UROBILINOGEN 0.2 E.U./dL (<1 E.U./dL); WHITE BLOOD COUNT 5.2 10^3/ul (4.5-11.0)
[2018-08-23 21:10] LABS: URINE APPEARANCE SL CLOUDY (CLEAR); URINE COLOR YELLOW (YELLOW)
[2018-08-23] MEDS ORDERED: Morphine 2 mg/ml ISec IVP STA ×2 (21:12→23:54)
[2018-08-23] MEDS ORDERED: Morphine 2 mg/ml ISec ONE (21:17)
[2018-08-23 21:24] LABS: ALB/GLOB RATIO 1.3 (1.1-1.8); ALBUMIN 4.1 g/dL (3.0-4.8); ALT/SGPT 28 U/L (7-56); AST/SGOT 28 U/L (14-36); BLOOD UREA NITROGEN 13 mg/dL (7-21); CALCIUM 8.8 mg/dL (8.4-10.5); GFR NON-AFRICAN AMERICAN > 60; LIPASE 261 U/L (23-300)
[2018-08-23] MEDS ORDERED: Iohexol 350 MG/100 ML VIAL ONE (22:17)
[2018-08-24 00:07] VITALS: TEMP 97.9
--- NOTE | 2018-08-24 01:13 | CP.PCM.HP ---
<Marielena Pham - Last Filed: 08/24/18 01:40> History of Present Illness - History of Present Illness History of Present Illness: 23yo female PMHx chronic pancreatitis dx 2012 2/2 EtOH abuse, PCOS, asthma, bronchitis, HTN noncompliance with medications presents for abdominal pain for 2-3 days. Patient reports coming in today as the pain was getting worse and not improving with Tylenol. She described the pain as an intermittent sharp sensation 6/10, epigastric and radiating to the back. She admits to some nausea but no vomiting. Patient's last meal was prior to coming to the ER and she ate nicic pasta and reports she is eager to eat a regular diet when admitted- she was requesting salty foods. Patient also complained of some constipation but reports her last BM was the day of admission and denies any straining/hematochezia. Patient reports she was diagnosed with pancreatitis in 2012 when she used to drink 1 gallon of vicki daily and since then has only been drinking over the weekend. Her last drink was the day prior to admission when she drank 2 cups of Vicki. She recently saw her PMD on Aug 19 and was given referrals to see a GI and CABLE TELEVISION ACCESS COORDINATOR but never followed up. Patient has also been prescribed medications which she does not take as she reports it makes her sick. She denies any recent travel/sick contacts. ROS: admits: chills, headaches, dizziness, lightheadedness, cough, abdominal pain, nausea, constipation, numbness and tingling in her hands b/l denies: fever, chest pain, palpitations, SOB, vomiting, diarrhea, weight changes, dysura, b/l LE pain/swelling LMP: last week [does not remember] PMHx: pancreatitis dx 2012, PCOS, asthma, bronchitis, HTN PSurgHx: thyroid cyst 7yo Meds: denies ALL: PCN and pollen SocHx: EtOH abuse in the past used to drink 1gallon of vicki daily- since 2012 has been drinking EtOH socially 2cups over the weekend; smokes 2 cigarettes/day but used to smoke 10-15cigarettes/daily for 4 years; smokes marijuana daily; denies any IV drug use. lives with boyfriend. does not work. FamHx: HTN and DM in mother and father; great grandmother with breast ca; no hx of CVA in family PMD: Dr. Nancie Tran [last seen Aug 19 for routine visit] GI: patient given a referral but never followed up Butane Compressor Operator: patient given a referral but never followed up Pharmacy: none Insurance: [employer] Present on Admission - Present on Admission Any Indicators Present on Admission: No Review of Systems - Review of Systems All systems: reviewed and no additional remarkable complaints except Review of Systems: as per HPI Past Patient History - Infectious Disease Hx of Infectious Diseases: None - Tetanus Immunizations Tetanus Immunization: Up to Date - Past Medical History & Family History Past Medical History?: Yes - Past Social History Smoking Status: Current Some Days Smoker - CARDIAC Hx Cardiac Disorders: No - PULMONARY Hx Respiratory Disorders: Yes Hx Asthma: Yes - NEUROLOGICAL Hx Neurological Disorder: No - HEENT Hx HEENT Problems: No - RENAL Hx Chronic Kidney Disease: No - ENDOCRINE/METABOLIC Hx Endocrine Disorders: Yes Other/Comment: THYROID SURGERY - HEMATOLOGICAL/ONCOLOGICAL Hx Blood Disorders: No - INTEGUMENTARY Hx Dermatological Problems: No - MUSCULOSKELETAL/RHEUMATOLOGICAL Hx Musculoskeletal Disorders: No - GASTROINTESTINAL Hx Gastrointestinal Disorders: Yes Hx Pancreatitis: Yes - GENITOURINARY/GYNECOLOGICAL Hx Genitourinary Disorders: Yes (ovarian cyst) Other/Comment: PCOS - PSYCHIATRIC Hx Psychophysiologic Disorder: Yes Hx Depression: Yes Hx Substance Use: Yes (marijuana daily) - SURGICAL HISTORY Hx Surgeries: Yes Hx Thyroidectomy: (cyst removal) - ANESTHESIA Hx Anesthesia: No Meds Allergies/Adverse Reactions: Allergies Allergy/AdvReac Type Severity Reaction Status Date / Time Penicillins Allergy RASH Verified 08/23/18 20:18 Physical Exam - Constitutional Appears: Non-toxic, No Acute Distress - Head Exam Head Exam: ATRAUMATIC, NORMAL INSPECTION, NORMOCEPHALIC - Eye Exam Eye Exam: EOMI, Normal appearance, PERRL. absent: Conjunctival injection, Scleral icterus Pupil Exam: NORMAL ACCOMODATION - ENT Exam ENT Exam: Mucous Membranes Moist - Neck Exam Neck exam: Positive for: Full Rom, Normal Inspection - Respiratory Exam Respiratory Exam: Clear to Auscultation Bilateral, NORMAL BREATHING PATTERN. absent: Accessory Muscle Use, Rales, Rhonchi, Wheezes, Respiratory Distress - Cardiovascular Exam Cardiovascular Exam: REGULAR RHYTHM, RRR, +S1, +S2. absent: Bradycardia, Tachycardia, Systolic Murmur - GI/Abdominal Exam GI & Abdominal Exam: Normal Bowel Sounds, Soft, Tenderness (mild epigastric). absent: Distended, Firm, Guarding, Rigid - Rectal Exam Rectal Exam: Deferred - Extremities Exam Extremities exam: Positive for: normal capillary refill, normal inspection, pedal pulses present. Negative for: pedal edema - Back Exam Back exam: NORMAL INSPECTION. absent: rash noted - Neurological Exam Neurological exam: Alert, CN II-XII Intact, Oriented x3 - Psychiatric Exam Psychiatric exam: Normal Affect, Normal Mood - Skin Skin Exam: Dry, Intact, Normal Color, Warm Results - Vital Signs Recent Vital Signs: Last Vital Signs Temp 97.9 F 08/24/18 00:07 Pulse 57 L 08/24/18 00:07 Resp 18 08/24/18 00:07 BP 121/73 08/24/18 00:07 Pulse Ox 100 08/24/18 00:07 - Labs Result Diagrams: 08/23/18 20:57 08/23/18 20:57 Labs: Laboratory Results - last 24 hr 08/23/18 08/23/18 08/23/18 20:57 20:57 20:57 WBC 5.2 D RBC 4.73 Hgb 12.6 Hct 39.3 MCV 83.1 MCH 26.6 MCHC 32.1 RDW 12.6 Plt Count 259 MPV 9.9 Gran % 44.5 L Lymph % (Auto) 46.8 H [place] % (Auto) 5.0 Eos % (Auto) 3.5 Baso % (Auto) 0.2 Gran # 2.29 Lymph # (Auto) 2.4 [place] # (Auto) 0.3 Eos # (Auto) 0.2 Baso # (Auto) 0.01 Sodium 138 Potassium 4.0 Chloride 103 Carbon Dioxide 27 Anion Gap 11 BUN 13 Creatinine 0.8 Est GFR ( Amer) > 60 Est GFR (Non-Af Amer) > 60 Random Glucose 97 Calcium 8.8 Total Bilirubin 0.3 AST 28 ALT 28 Alkaline Phosphatase 72 Total Protein 7.3 Albumin 4.1 Globulin 3.1 Albumin/Globulin Ratio 1.3 Lipase 261 Urine Color Yellow Urine Appearance Sl cloudy Urine pH 5.5 Ur Specific [place] >= 1.030 Urine Protein Negative Urine Glucose (UA) Negative Urine Ketones Negative Urine Blood Negative Urine Nitrate Negative Urine Bilirubin Negative Urine Urobilinogen 0.2 Ur Leukocyte Esterase Negative Assessment & Plan - Assessment and Plan (Free Text) Assessment: 23yo female PMHx chronic pancreatitis dx 2013 /2 EtOH abuse, PCOS, asthma, bronchitis, HTN noncompliance with medications presents for abdominal pain for 2-3 days. Patient admitted to Med-Surg under OBS for further management Plan: Acute pancreatitis -CT A/P prelim: mild increase in the size of the L ovarian mature teratoma/dermoid measuring 5.4 x 4.7cm on the current exam. Changes of chronic pancreatitis. Minimal ill-definition of the peripancreatic fat. Probably associated minimal acute pancreatitis. f/u official read -Lipase on admission: 261 -trend BUN -LR @ 100cc/hr -Zofran 4mg po q6h prn nausea/vomiting -Oxycodone 5mg po q6h prn pain severe -Regular diet -Consider GI consult Hx of PCOS -no acute issues -f/u with Butane Compressor Operator as outpatient Hx of Asthma -no acute issues -Duoneb 3ml inh q6 prn wheezing Hx of bronchitis -no acute issues Hx of HTN -does not take any medications at home -monitor off medications and maintain normotension Hx of EtOH abuse -f/u alcohol level -Alcohol cessation counseling Hx of tobacco abuse -Smoking cessation counseling Hx of marijuana use -f/u UDS -Drug cessation counseling GI ppx: Protonix 40mg po qd DVT ppx: Heparin 5000u sc q12, SCDs Diet: Regular Dispo: Obs Discussed with Dr. Verena Pham PGY3 <Anatoliy Gray - Last Filed: 08/24/18 05:31> Results - Vital Signs Recent Vital Signs: Last Vital Signs Temp 97.9 F 08/24/18 02:15 Pulse 69 08/24/18 02:15 Resp 18 08/24/18 02:15 BP 130/71 08/24/18 02:15 Pulse Ox 99 08/24/18 02:15 - Labs Result Diagrams: 08/23/18 20:57 08/23/18 20:57 Labs: Laboratory Results - last 24 hr 08/23/18 08/23/18 08/23/18 20:57 20:57 20:57 WBC 5.2 D RBC 4.73 Hgb 12.6 Hct 39.3 MCV 83.1 MCH 26.6 MCHC 32.1 RDW 12.6 Plt Count 259 MPV 9.9 Gran % 44.5 L Lymph % (Auto) 46.8 H [place] % (Auto) 5.0 Eos % (Auto) 3.5 Baso % (Auto) 0.2 Gran # 2.29 Lymph # (Auto) 2.4 [place] # (Auto) 0.3 Eos # (Auto) 0.2 Baso # (Auto) 0.01 Sodium 138 Potassium 4.0 Chloride 103 Carbon Dioxide 27 Anion Gap 11 BUN 13 Creatinine 0.8 Est GFR ( Amer) > 60 Est GFR (Non-Af Amer) > 60 Random Glucose 97 Calcium 8.8 Total Bilirubin 0.3 AST 28 ALT 28 Alkaline Phosphatase 72 Total Protein 7.3 Albumin 4.1 Globulin 3.1 Albumin/Globulin Ratio 1.3 Lipase 261 Urine Color Yellow Urine Appearance Sl cloudy Urine pH 5.5 Ur Specific [place] >= 1.030 Urine Protein Negative Urine Glucose (UA) Negative Urine Ketones Negative Urine Blood Negative Urine Nitrate Negative Urine Bilirubin Negative Urine Urobilinogen 0.2 Ur Leukocyte Esterase Negative Attending/Attestation - Attestation I have personally seen and examined this patient.: Yes I have fully participated in the care of the patient.: Yes I have reviewed all pertinent clinical information: Yes
[2018-08-24] MEDS ORDERED: oxyCODONE 5 mg Immediate Release Tab PO PRN (01:38)
[2018-08-24] MEDS ORDERED: Albuterol-Ipratrop 3 mg / 0.5 (3 ml) UD IH PRN (01:38)
[2018-08-24] MEDS ORDERED: Lactated Ringer's 1,000 ML IV SCH (01:45)
--- NOTE | 2018-08-24 02:53 | CP.PCM.DIS ---
Provider - Provider Date of Admission: 08/24/18 01:01 Attending physician: Anatoliy Gray MD Primary care physician: Chelsea Sanchez MD Time Spent in preparation of Discharge (in minutes): 45 Hospital Course - Lab Results Lab Results: Most Recent Lab Values WBC 5.2 10^3/ul (4.5-11.0) D 08/23/18 20:57 RBC 4.73 10^6/uL (3.5-6.1) 08/23/18 20:57 Hgb 12.6 g/dL (12.0-16.0) 08/23/18 20:57 Hct 39.3 % (36.0-48.0) 08/23/18 20:57 MCV 83.1 fl (80.0-105.0) 08/23/18 20:57 MCH 26.6 pg (25.0-35.0) 08/23/18 20:57 MCHC 32.1 g/dl (31.0-37.0) 08/23/18 20:57 RDW 12.6 % (11.5-14.5) 08/23/18 20:57 Plt Count 259 10^3/uL (120.0-450.0) 08/23/18 20:57 MPV 9.9 fl (7.0-11.0) 08/23/18 20:57 Gran % 44.5 % (50.0-68.0) L 08/23/18 20:57 Lymph % (Auto) 46.8 % (22.0-35.0) H 08/23/18 20:57 [place] % (Auto) 5.0 % (1.0-6.0) 08/23/18 20:57 Eos % (Auto) 3.5 % (1.5-5.0) 08/23/18 20:57 Baso % (Auto) 0.2 % (0.0-3.0) 08/23/18 20:57 Gran # 2.29 (1.4-6.5) 08/23/18 20:57 Lymph # (Auto) 2.4 (1.2-3.4) 08/23/18 20:57 [place] # (Auto) 0.3 (0.1-0.6) 08/23/18 20:57 Eos # (Auto) 0.2 (0.0-0.7) 08/23/18 20:57 Baso # (Auto) 0.01 K/mm3 (0.0-2.0) 08/23/18 20:57 Sodium 138 mmol/L (132-148) 08/23/18 20:57 Potassium 4.0 mmol/L (3.6-5.0) 08/23/18 20:57 Chloride 103 mmol/L (98-107) 08/23/18 20:57 Carbon Dioxide 27 mmol/L (21-33) 08/23/18 20:57 Anion Gap 11 (10-20) 08/23/18 20:57 BUN 13 mg/dL (7-21) 08/23/18 20:57 Creatinine 0.8 mg/dl (0.7-1.2) 08/23/18 20:57 Est GFR ( Amer) > 60 08/23/18 20:57 Est GFR (Non-Af Amer) > 60 08/23/18 20:57 Random Glucose 97 mg/dL (70-110) 08/23/18 20:57 Calcium 8.8 mg/dL (8.4-10.5) 08/23/18 20:57 Total Bilirubin 0.3 mg/dL (0.2-1.3) 08/23/18 20:57 AST 28 U/L (14-36) 08/23/18 20:57 ALT 28 U/L (7-56) 08/23/18 20:57 Alkaline Phosphatase 72 U/L (38-126) 08/23/18 20:57 Total Protein 7.3 g/dL (5.8-8.3) 08/23/18 20:57 Albumin 4.1 g/dL (3.0-4.8) 08/23/18 20:57 Globulin 3.1 gm/dL 08/23/18 20:57 Albumin/Globulin Ratio 1.3 (1.1-1.8) 08/23/18 20:57 Lipase 261 U/L (23-300) 08/23/18 20:57 Urine Color Yellow (YELLOW) 08/23/18 20:57 Urine Appearance Sl cloudy (CLEAR) 08/23/18 20:57 Urine pH 5.5 (4.7-8.0) 08/23/18 20:57 Ur Specific [place] >= 1.030 (1.005-1.035) 08/23/18 20:57 Urine Protein Negative mg/dL (<30 mg/dL) 08/23/18 20:57 Urine Glucose (UA) Negative mg/dL (NEGATIVE) 08/23/18 20:57 Urine Ketones Negative mg/dL (NEGATIVE) 08/23/18 20:57 Urine Blood Negative (NEGATIVE) 08/23/18 20:57 Urine Nitrate Negative (NEGATIVE) 08/23/18 20:57 Urine Bilirubin Negative (NEGATIVE) 08/23/18 20:57 Urine Urobilinogen 0.2 E.U./dL (<1 E.U./dL) 08/23/18 20:57 Ur Leukocyte Esterase Negative Negin/uL (NEGATIVE) 08/23/18 20:57 - Hospital Course Hospital Course: Upon Admission 23yo female PMHx chronic pancreatitis dx 12/11 EtOH abuse, PCOS, asthma, bronchitis, HTN noncompliance with medications presents for abdominal pain for 2-3 days. Patient reports coming in today as the pain was getting worse and not improving with Tylenol. She described the pain as an intermittent sharp se nsation 6/10, epigastric and radiating to the back. She admits to some nausea but no vomiting. Patient's last meal was prior to coming to the ER and she ate nicci pasta and reports she is eager to eat a regular diet when admitted- she was requesting salty foods. Patient also complained of some constipation but reports her last BM was the day of admission and denies any straining/hematochezia. Patient reports she was diagnosed with pancreatitis in 2012 when she used to drink 1 gallon of vicki daily and since then has only been drinking over the weekend. Her last drink was the day prior to admission when she drank 2 cups of Vicki. She recently saw her PMD on Aug 19 and was given referrals to see a GI and BOOKKEEPER but never followed up. Patient has also been prescribed medications which she does not take as she reports it makes her sick. She denies any recent travel/sick contacts. In the ER patient had a CT A/P that prelim read showed mild increase in the size of the L ovarian mature teratoma/dermoid measuring 5.4 x 4.7cm on the current exam. Changes of chronic pancreatitis. Minimal ill-definition of the peripancreatic fat. Probably associated minimal acute pancreatitis. Patient also had a lipase of 261. Patient was admitted to Med-Surg under OBS for further management. Patient verbalized to the nurse at 2:02AM that she wanted to leave against medical advice. House Doc was paged at 2:03AM and the nurse said that the patient had already left and refused to stay to sign the AMA paperworked and refused any further examination. Discharge Exam - Head Exam Additional comments: patient refused to wait to be examined prior to leaving and refused to wait to sign AMA paperwork Discharge Plan - Follow Up Plan Condition: FAIR Disposition: AGAINST MEDICAL ADVICE Instructions: Pancreatitis (DC) Referrals: Chelsea Sanchez MD [Primary Care Provider] -
[2018-08-24 03:43] VITALS: BP 130/71; PULSE 69; O2SAT 99
--- NOTE | 2018-08-24 03:55 | ED PDOC ---
Arrival/HPI - General Historian: Patient - History of Present Illness Narrative History of Present Illness (Text): 08/24/18 03:52 23 y/o female with PMH of pancreatitis presents to the ED c/o epigastric pain radiating through to the back x 3 days. Pain is sharp, 10/10, made worse by lying flat. Pt states this pain is similar to prior episodes of pancreatitis. Has tried tylenol and ibuprofen for pain without relief. Denies fevers, chills, nausea, vomiting, diarrhea, SOB, chest pain, rash. <Carmela Rios - Last Filed: 08/24/18 03:52> <Daniel Larson - Last Filed: 08/26/18 06:26> - General Chief Complaint: Abdominal Pain Time Seen by Provider: 08/23/18 20:35 Past Medical History - Provider Review Nursing Documentation Reviewed: Yes - Infectious Disease Hx of Infectious Diseases: None - Tetanus Immunization Tetanus Immunization: Up to Date - Cardiac Hx Cardiac Disorders: No - Pulmonary Hx Respiratory Disorders: Yes Hx Asthma: Yes - Neurological Hx Neurological Disorder: No - HEENT Hx HEENT Disorder: No - Renal Hx Renal Disorder: No - Endocrine/Metabolic Hx Endocrine Disorders: Yes Other/Comment: THYROID SURGERY - Hematological/Oncological Hx Blood Disorders: No - Integumentary Hx Dermatological Disorder: No - Musculoskeletal/Rheumatological Hx Musculoskeletal Disorders: No - Gastrointestinal Hx Gastrointestinal Disorders: Yes Hx Pancreatitis: Yes - Genitourinary/Gynecological Hx Genitourinary Disorders: Yes (ovarian cyst) Other/Comment: PCOS - Psychiatric Hx Psychophysiologic Disorder: Yes Hx Depression: Yes Hx Substance Use: Yes (marijuana daily) - Surgical History Hx Thyroidectomy: (cyst removal) - Anesthesia Hx Anesthesia: No <Carmela Rios - Last Filed: 08/24/18 03:52> Family/Social History - Physician Review Nursing Documentation Reviewed: Yes Family/Social History: No Known Family HX Smoking Status: Current Some Days Smoker Hx Alcohol Use: Yes (pt was drinking daily until last week) Hx Substance Use: Yes (marijuana daily) <Carmela Rios - Last Filed: 08/24/18 03:52> Allergies/Home Meds <Carmela Rios - Last Filed: 08/24/18 03:52> <Daniel Larson - Last Filed: 08/26/18 06:26> Allergies/Adverse Reactions: Allergies Penicillins Allergy (Verified 08/23/18 20:18) RASH Home Medications: Home Meds Medication Instructions Recorded Confirmed RX: No Known Home Med 05/25/18 08/23/18 Review of Systems - Physician Review All systems were reviewed & negative as marked: Yes - Review of Systems Constitutional: Normal. absent: Fevers Eyes: Normal ENT: Normal Respiratory: Normal. absent: SOB, Cough Cardiovascular: Normal. absent: Chest Pain, Palpitations Gastrointestinal: Abdominal Pain (epigastric). absent: Nausea, Vomiting Genitourinary Female: Normal Musculoskeletal: Normal Skin: Normal. absent: Rash Neurological: Normal. absent: Headache, Dizziness Hemo/Lymphatic: Normal. absent: Adenopathy <Carmela Rios - Last Filed: 08/24/18 03:52> Physical Exam Vital Signs Reviewed: Yes Vital Signs Temp Pulse Resp BP Pulse Ox 08/24/18 02:15 97.9 F 69 18 130/71 99 08/24/18 01:50 97.9 F 69 18 130/71 99 08/24/18 00:07 97.9 F 57 L 18 121/73 100 08/23/18 22:06 63 18 125/80 100 08/23/18 20:13 98.5 F 73 18 126/77 100 Temperature: Afebrile Blood Pressure: Normal Pulse: Regular Respiratory Rate: Normal Appearance: Positive for: Well-Appearing, Non-Toxic, Comfortable Pain Distress: None Mental Status: Positive for: Alert and Oriented X 3 - Systems Exam Head: Present: Atraumatic, Normocephalic Pupils: Present: PERRL Extroacular Muscles: Present: EOMI Conjunctiva: Present: Normal Neck: Present: Normal Range of Motion Respiratory/Chest: Present: Clear to Auscultation, Good Air Exchange. No: Respiratory Distress, Accessory Muscle Use Cardiovascular: Present: Regular Rate and Rhythm, Normal S1, S2. No: Murmurs Abdomen: Present: Tenderness (epigastric, LUQ, RUQ), Normal Bowel Sounds, Guarding. No: Distention, Peritoneal Signs, Rebound, McBurney's Point Tender, Rovsing's Sign Present Back: Present: Normal Inspection. No: Midline Tenderness, Paraspinal Tenderness Upper Extremity: Present: Normal Inspection, Normal ROM, NORMAL PULSES. No: Cyanosis, Edema Lower Extremity: Present: Normal Inspection, NORMAL PULSES, Normal ROM Neurological: Present: GCS=15, CN II-XII Intact, Speech Normal, Motor Func Grossly Intact, Normal Sensory Function, Normal Cerebellar Funct Skin: Present: Warm, Dry, Normal Color. No: Rashes Lymphatic: No: Cervical Adenopathy Psychiatric: Present: Alert, Oriented x 3, Normal Insight, Normal Concentration <Carmela Rios - Last Filed: 08/24/18 03:52> Vital Signs Temp Pulse Resp BP Pulse Ox 08/24/18 02:15 97.9 F 69 18 130/71 99 08/24/18 01:50 97.9 F 69 18 130/71 99 08/24/18 00:07 97.9 F 57 L 18 121/73 100 08/23/18 22:06 63 18 125/80 100 08/23/18 20:13 98.5 F 73 18 126/77 100 <Daniel Larson - Last Filed: 08/26/18 06:26> Medical Decision Making ED Course and Treatment: 08/24/18 03:55 Initial Plan: --CBC, CMP, Lipase --CT abd/pelvis with IV contrast --Morphine --Zofran --protonix CBC, CMP, Lipase: wnl CT: Mild increase in size of the left ovarian mature teratoma/dermoid measuring 5.4x4.7cm on current exam. Changes of chronic pancreatitis. Minimal ill-definition of the peripancreatic fat, probably associated minimal pancreatitis. Teratoma discussed with pt, emphasized importance of followup with OBGYN, pt understands. Pt reports decreased pain on re-eval Impression: Acute Pancreatitis Plan: Admit to Dr. Barraza, observation med/surg Plan discussed with pt, who agrees and understands. 08/24/18 03:58 Pt refusing admission, will sign out AMA. - Lab Interpretations Lab Results: 08/23/18 20:57 08/23/18 20:57 Lab Results 08/23/18 20:57: Sodium 138, Potassium 4.0, Chloride 103, Carbon Dioxide 27, An ion Gap 11, BUN 13, Creatinine 0.8, Est GFR ( Amer) > 60, Est GFR (Non-Af Amer) > 60, Random Glucose 97, Calcium 8.8, Total Bilirubin 0.3, AST 28, ALT 28, Alkaline Phosphatase 72, Total Protein 7.3, Albumin 4.1, Globulin 3.1, Albumin/Globulin Ratio 1.3, Lipase 261 08/23/18 20:57: Urine Color Yellow, Urine Appearance Sl cloudy, Urine pH 5.5, Ur Specific [place] >= 1.030, Urine Protein Negative, Urine Glucose (UA) Negative, Urine Ketones Negative, Urine Blood Negative, Urine Nitrate Negative, Urine Bilirubin Negative, Urine Urobilinogen 0.2, Ur Leukocyte Esterase Negative 08/23/18 20:57: WBC 5.2 D, RBC 4.73, Hgb 12.6, Hct 39.3, MCV 83.1, MCH 26.6, MCHC 32.1, RDW 12.6, Plt Count 259, MPV 9.9, Gran % 44.5 L, Lymph % (Auto) 46.8 H, [place] % (Auto) 5.0, Eos % (Auto) 3.5, Baso % (Auto) 0.2, Gran # 2.29, Lymph # (Auto) 2.4, [place] # (Auto) 0.3, Eos # (Auto) 0.2, Baso # (Auto) 0.01 - RAD Interpretation Radiology Orders: 08/23/18 22:06 ABDOMEN & PELVIS [ABD & PELVIS IV CONTRAST ONLY] [CT] Stat - Medication Orders Current Medication Orders: Discontinued Medications Albuterol/Ipratropium (Duoneb 3 Mg/0.5 Mg (3 Ml) Ud) 3 ml IH Q6H PRN PRN Reason: Wheezing Heparin Sodium (Porcine) (Heparin) 5,000 units SC Q12 MISSAEL; Protocol Sodium Chloride (Sodium Chloride 0.9%) 1,000 mls @ 999 mls/hr IV .Q1H1M STA Stop: 08/23/18 21:36 Last Admin: 08/23/18 21:03 Dose: 999 mls/hr eMAR Start Stop Document 08/23/18 21:03 DC (Rec: 08/23/18 21:03 DC [id number]) Intravenous Solution Start Date 08/23/18 Start Time 21:03 Lactated Ringer's (Lactated Ringer's) 1,000 mls @ 100 mls/hr IV .Q10H MISSAEL Morphine Sulfate (Morphine) 2 mg IVP STAT STA Stop: 08/23/18 21:13 Last Admin: 08/23/18 21:17 Dose: 2 mg MAR Pain Assessment Document 08/23/18 21:17 HI (Rec: 08/23/18 21:31 HI [id number]) Pain Reassessment Is this a pain reassessment? No Sleep Is patient sleeping during reassessment? No Presence of Pain Presence of Pain Yes Location Pain Location Body Site Abdomen Description Intensity of Pain at present 9 Acceptable Level of Pain 1 Pain Behavior Facial Grimacing IVP Administration Document 08/23/18 21:17 HI (Rec: 08/23/18 21:31 HI [id number]) Charges for Administration # of IVP Administrations 1 Re-Assess: MAR Pain Assessment Document 08/23/18 22:17 HI (Rec: 08/23/18 22:41 HI [id number]) Pain Reassessment Is this a pain reassessment? No Sleep Is patient sleeping during reassessment? No Presence of Pain Presence of Pain No Morphine Sulfate (Morphine) 2 mg IVP STAT STA Stop: 08/23/18 23:55 Last Admin: 08/24/18 00:11 Dose: 2 mg MAR Pain Assessment Document 08/24/18 00:11 OCS (Rec: 08/24/18 00:11 [id number] Pain Reassessment Is this a pain reassessment? Yes Sleep Is patient sleeping during reassessment? No Presence of Pain Presence of Pain Yes Pain Scale Used Protocol: PSCALES Pain Scale Used Numeric Location Left, Right or Bilateral Bilateral Upper or Lower Upper Pain Location Body Site Abdomen Description Description Constant Intensity of Pain at present 7 Pain Behavior Irritability Facial Grimacing Aggravating Factors ADL's IVP Administration Document 08/24/18 00:11 OCS (Rec: 08/24/18 00:11 OCS [id number]) Charges for Administration # of IVP Administrations 1 Ondansetron HCl (Zofran Inj) 4 mg IVP STAT STA Stop: 08/23/18 21:39 Last Admin: 08/23/18 21:17 Dose: 4 mg IVP Administration Document 08/23/18 21:17 HI (Rec: 08/23/18 22:05 HI [id number]) Charges for Administration # of IVP Administrations 1 Ondansetron HCl (Zofran Tab) 4 mg PO Q6H PRN PRN Reason: Nausea/Vomiting Oxycodone HCl (Oxycodone Immediate Release Tab) 5 mg PO Q6H PRN PRN Reason: Pain, severe (8-10) Pantoprazole Sodium (Protonix Inj) 40 mg IVP STAT STA Stop: 08/23/18 22:14 Last Admin: 08/23/18 23:16 Dose: 40 mg IVP Administration Document 08/23/18 23:16 DC (Rec: 08/23/18 23:16 [id number] Charges for Administration # of IVP Administrations 1 Pantoprazole Sodium (Protonix Ec Tab) 40 mg PO 0600 [facility] <Carmela Rios - Last Filed: 08/24/18 03:52> ED Course and Treatment: 08/26/18 06:25 The documented history was done by the physician stunt man. The documented physical exam was done by the physician stunt man. The documented procedures were done by the physician stunt man, I was available for consultation during the PA/ACTIVITY AIDE evaluation. The chart was reviewed by me, and I agree with the management and plan. - Lab Interpretations Microbiology Results: Microbiology Results 08/23/18 20:57 Urine Urine Culture - Final No Growth (<1,000 CFU/ML) Lab Results: 08/23/18 20:57 08/23/18 20:57 Lab Results 08/23/18 20:57: Sodium 138, Potassium 4.0, Chloride 103, Carbon Dioxide 27, Anion Gap 11, BUN 13, Creatinine 0.8, Est GFR ( Amer) > 60, Est GFR (Non- Af Amer) > 60, Random Glucose 97, Calcium 8.8, Total Bilirubin 0.3, AST 28, ALT 28, Alkaline Phosphatase 72, Total Protein 7.3, Albumin 4.1, Globulin 3.1, Albumin/Globulin Ratio 1.3, Lipase 261 08/23/18 20:57: Urine Color Yellow, Urine Appearance Sl cloudy, Urine pH 5.5, Ur Specific [place] >= 1.030, Urine Protein Negative, Urine Glucose (UA) Negative, Urine Ketones Negative, Urine Blood Negative, Urine Nitrate Negative, Urine Bilirubin Negative, Urine Urobilinogen 0.2, Ur Leukocyte Esterase Negative 08/23/18 20:57: WBC 5.2 D, RBC 4.73, Hgb 12.6, Hct 39.3, MCV 83.1, MCH 26.6, MCHC 32.1, RDW 12.6, Plt Count 259, MPV 9.9, Gran % 44.5 L, Lymph % (Auto) 46.8 H, [place] % (Auto) 5.0, Eos % (Auto) 3.5, Baso % (Auto) 0.2, Gran # 2.29, Lymph # (Auto) 2.4, [place] # (Auto) 0.3, Eos # (Auto) 0.2, Baso # (Auto) 0.01 - RAD Interpretation Radiology Orders: 08/23/18 22:06 ABDOMEN & PELVIS [ABD & PELVIS IV CONTRAST ONLY] [CT] Stat - Medication Orders Current Medication Orders: Discontinued Medications Albuterol/Ipratropium (Duoneb 3 Mg/0.5 Mg (3 Ml) Ud) 3 ml IH Q6H PRN PRN Reason: Wheezing Heparin Sodium (Porcine) (Heparin) 5,000 units SC Q12 MISSAEL; Protocol Sodium Chloride (Sodium Chloride 0.9%) 1,000 mls @ 999 mls/hr IV .Q1H1M STA Stop: 08/23/18 21:36 Last Admin: 08/23/18 21:03 Dose: 999 mls/hr eMAR Start Stop Document 08/23/18 21:03 HI (Rec: 08/23/18 21:03 [id number]) Intravenous Solution Start Date 08/23/18 Start Time 21:03 Lactated Ringer's (Lactated Ringer's) 1,000 mls @ 100 mls/hr IV .Q10H MISSAEL Morphine Sulfate (Morphine) 2 mg IVP STAT STA Stop: 08/23/18 21:13 Last Admin: 08/23/18 21:17 Dose: 2 mg [facility] Pain Assessment Document 08/23/18 21:17 HI (Rec: 08/23/18 21:31 [id number][facility] Pain Reassessment Is this a pain reassessment? No Sleep Is patient sleeping during reassessment? No Presence of Pain Presence of Pain Yes Location Pain Location Body Site Abdomen Description Intensity of Pain at present 9 Acceptable Level of Pain 1 Pain Behavior Facial Grimacing IVP Administration Document 08/23/18 21:17 HI (Rec: 08/23/18 21:31 [id number]) Charges for Administration # of IVP Administrations 1 Re-Assess: TORRES Pain Assessment Document 08/23/18 22:17 HI (Rec: 08/23/18 22:41 HI [id number]) Pain Reassessment Is this a pain reassessment? No Sleep Is patient sleeping during reassessment? No Presence of Pain Presence of Pain No Morphine Sulfate (Morphine) 2 mg IVP STAT STA Stop: 08/23/18 23:55 Last Admin: 08/24/18 00:11 Dose: 2 mg MAR Pain Assessment Document 08/24/18 00:11 OCS (Rec: 08/24/18 00:11 OCS [id number]) Pain Reassessment Is this a pain reassessment? Yes Sleep Is patient sleeping during reassessment? No Presence of Pain Presence of Pain Yes Pain Scale Used Protocol: PSCALES Pain Scale Used Numeric Location Left, Right or Bilateral Bilateral Upper or Lower Upper Pain Location Body Site Abdomen Description Description Constant Intensity of Pain at present 7 Pain Behavior Irritability Facial Grimacing Aggravating Factors ADL's IVP Administration Document 08/24/18 00:11 OCS (Rec: 08/24/18 00:11 OCS [id number]) Charges for Administration # of IVP Administrations 1 Ondansetron HCl (Zofran Inj) 4 mg IVP STAT STA Stop: 08/23/18 21:39 Last Admin: 08/23/18 21:17 Dose: 4 mg IVP Administration Document 08/23/18 21:17 HI (Rec: 08/23/18 22:05 HI [id number]) Charges for Administration # of IVP Administrations 1 Ondansetron HCl (Zofran Tab) 4 mg PO Q6H PRN PRN Reason: Nausea/Vomiting Oxycodone HCl (Oxycodone Immediate Release Tab) 5 mg PO Q6H PRN PRN Reason: Pain, severe (8-10) Pantoprazole Sodium (Protonix Inj) 40 mg IVP STAT STA Stop: 08/23/18 22:14 Last Admin: 08/23/18 23:16 Dose: 40 mg IVP Administration Document 08/23/18 23:16 HI (Rec: 08/23/18 23:16 HI [id number]) Charges for Administration # of IVP Administrations 1 Pantoprazole Sodium (Protonix Ec Tab) 40 mg PO 0600 [facility] <Daniel Larson - Last Filed: 08/26/18 06:26> Disposition/Present on Arrival - Present on Arrival Any Indicators Present on Arrival: No History of DVT/PE: No History of Uncontrolled Diabetes: No Urinary Catheter: No History of Decub. Ulcer: No History Surgical Site Infection Following: None - Disposition Have Diagnosis and Disposition been Completed?: Yes Disposition Time: 01:00 <Carmela Rios - Last Filed: 08/24/18 03:52> <Daniel Larson - Last Filed: 08/26/18 06:26> - Disposition Diagnosis: Pancreatitis Disposition: AGAINST MEDICAL ADVICE Condition: FAIR Discharge Instructions (ExitCare): Pancreatitis (DC) Referrals: Chelsea Sanchez MD [Primary Care Provider] -
[2018-08-24] MEDS ORDERED: Pantoprazole 40 mg EC Tab PO SCH (06:00)
--- NOTE | 2018-08-24 10:31 | CT ---
Date of service: 08/23/2018 PROCEDURE: CT Abdomen and Pelvis with contrast HISTORY: abdominal pain h/o pancreatitis COMPARISON: None. TECHNIQUE: Contrast dose: 100 cc of Omni 350 Radiation dose: Total exam DLP = 578 mGy-cm. This CT exam was performed using one or more of the following dose reduction techniques: Automated exposure control, adjustment of the mA and/or kV according to patient size, and/or use of iterative reconstruction technique. FINDINGS: LOWER THORAX: Unremarkable. LIVER: Unremarkable. No gross lesion or ductal dilatation. GALLBLADDER AND BILE DUCTS: Unremarkable. PANCREAS: There is chronic pancreatitis with extensive coarse calcifications. There is a 2.3 cm pseudocyst in the pancreatic head. There is minimal fluid on the ventral side of the tail of the pancreas adjacent to the splenic vein. This could represent superimposed acute pancreatitis. SPLEEN: Unremarkable. ADRENALS: Unremarkable. No mass. KIDNEYS AND URETERS: Unremarkable. No hydronephrosis. No solid mass. VASCULATURE: Unremarkable. No aortic aneurysm. BOWEL: Unremarkable. No obstruction. No gross mural thickening. APPENDIX: Normal appendix. PERITONEUM: Unremarkable. No free fluid. No free air. LYMPH NODES: Unremarkable. No enlarged lymph nodes. BLADDER: Unremarkable. REPRODUCTIVE: There is a 4.3 x 5.8 cm dermoid on the left side of the pelvis. This has slightly increased in size. BONES: No acute fracture. OTHER FINDINGS: None. IMPRESSION: There is chronic pancreatitis with extensive coarse calcifications. There is a 2.3 cm pseudocyst in the pancreatic head. There is minimal fluid on the ventral side of the tail of the pancreas adjacent to the splenic vein. This could represent superimposed acute pancreatitis. There is a 4.3 x 5.8 cm dermoid on the left side of the pelvis. This has slightly increased in size.
== END 2018-08-24 02:15 | disposition left against medical advice (07) ==
LOC: ED 19:44 → INTOOBSV 08-24 01:01 → ERH 08-24 01:01 → UNDOADMOB 08-24 01:01
DX: K85.90 Acute pancreatitis without necrosis or infection, unspecified (principal)
CPT/HCPCS: 74177; 80053; 81003; 83690; 85025; 87086; 96374; 96375; 96376; 99285; C9113; J2270; J2405; J7030; Q9967

== ENCOUNTER 2018-08-29 16:37 | Emergency (ER) | payer MEDICAID ==
[2018-08-29 16:41] VITALS: BMI 31.5
[2018-08-29 16:46] VITALS: RESP 18; TEMP 98.5
[2018-08-29] MEDS ORDERED: Sodium Chloride 0.9% 1,000 ML IV STA (16:52)
[2018-08-29] MEDS ORDERED: Acetaminophen 650mg/20.3ml solution UD PO STA (16:53)
--- NOTE | 2018-08-29 16:59 | ED PDOC ---
Arrival/HPI - General Chief Complaint: Female Genitourinary Time Seen by Provider: 08/29/18 16:39 Historian: Patient - History of Present Illness Narrative History of Present Illness (Text): 08/29/18 16:53 A 23 year old female, whose past medical history includes pancreatitis and ovarian cyst, presents to the emergency department complaining of suprapubic pain. Patient reports also experiencing chills and vaginal bleeding with blood clots. She states she had an ultrasound performed several days ago at a medical center, stating it was showed a cyst. Patient denies any fever, or any other complaints at this time. No PMD 08/30/18 07:23 Past Medical History - Provider Review Nursing Documentation Reviewed: Yes - Infectious Disease Hx of Infectious Diseases: None - Tetanus Immunization Tetanus Immunization: Up to Date - Cardiac Hx Cardiac Disorders: No - Pulmonary Hx Respiratory Disorders: Yes Hx Asthma: Yes - Neurological Hx Neurological Disorder: No - HEENT Hx HEENT Disorder: No - Renal Hx Renal Disorder: No - Endocrine/Metabolic Hx Endocrine Disorders: Yes Other/Comment: THYROID SURGERY - Hematological/Oncological Hx Blood Disorders: No - Integumentary Hx Dermatological Disorder: No - Musculoskeletal/Rheumatological Hx Musculoskeletal Disorders: No - Gastrointestinal Hx Gastrointestinal Disorders: Yes Hx Pancreatitis: Yes - Genitourinary/Gynecological Hx Genitourinary Disorders: Yes (ovarian cyst) Other/Comment: PCOS - Psychiatric Hx Psychophysiologic Disorder: Yes Hx Depression: Yes Hx Substance Use: Yes (marijuana daily) - Surgical History Hx Thyroidectomy: (cyst removal) - Anesthesia Hx Anesthesia: Yes Hx Anesthesia Reactions: No Hx Malignant Hyperthermia: No Family/Social History - Physician Review Nursing Documentation Reviewed: Yes Family/Social History: No Known Family HX Smoking Status: Current Some Days Smoker Hx Alcohol Use: Yes (pt was drinking daily until last week) Hx Substance Use: Yes (marijuana daily) Allergies/Home Meds Allergies/Adverse Reactions: Allergies Penicillins Allergy (Verified 08/23/18 20:18) RASH Review of Systems - Physician Review All systems were reviewed & negative as marked: Yes - Review of Systems Constitutional: Night Sweats. absent: Fevers Eyes: Vision Changes (patient states she is "seeing spots".) Gastrointestinal: Abdominal Pain (suprapubic region) Genitourinary Female: Vaginal Bleeding (blood clots) Physical Exam Vital Signs Reviewed: Yes Vital Signs Temp Pulse Resp BP Pulse Ox 08/29/18 16:45 98.5 F 64 18 135/81 100 Temperature: Afebrile Blood Pressure: Normal Pulse: Regular Respiratory Rate: Normal Appearance: Positive for: Well-Appearing, Non-Toxic, Comfortable Pain Distress: None Mental Status: Positive for: Alert and Oriented X 3 - Systems Exam Head: Present: Atraumatic, Normocephalic Pupils: Present: PERRL Extroacular Muscles: Present: EOMI Conjunctiva: Present: Normal Mouth: Present: Moist Mucous Membranes Neck: Present: Normal Range of Motion Respiratory/Chest: Present: Clear to Auscultation, Good Air Exchange. No: Respiratory Distress, Accessory Muscle Use Cardiovascular: Present: Regular Rate and Rhythm, Normal S1, S2. No: Murmurs Abdomen: Present: Tenderness (left-side). No: Distention, Peritoneal Signs Back: Present: Normal Inspection Upper Extremity: Present: Normal Inspection. No: Cyanosis, Edema Lower Extremity: Present: Normal Inspection. No: Edema Neurological: Present: GCS=15, CN II-XII Intact, Speech Normal Skin: Present: Warm, Dry, Normal Color. No: Rashes Psychiatric: Present: Alert, Oriented x 3, Normal Insight, Normal Concentration Medical Decision Making ED Course and Treatment: 08/29/18 16:52 Impression: 23 year old female with suprapubic abdominal pain. Physical exam shows left-side abdominal tenderness; no other acute findings on examination. Plan: -- Transvaginal Ultrasound -- Labs -- Tylenol -- IV Fluids -- Reassess and disposition Prior Visits: Notes and results from previous visits were reviewed. Patient was last seen here in the emergency department on 08/23/2018 for epigastric pain radiating to back. Patient left against medical advice. Progress Notes: 08/29/18 19:30 Transvaginal ultrasound does not visualize left ovary, torsion not excluded. i advised that i discuss the case with obgyn andpotential transfer vs repeat imaging and wool carder eval at [facility]. pt refuses, states she wants to see obgyn tommorow. discussed in detail. pt understands risks. signs AMA - Lab Interpretations I have reviewed the lab results: Yes - RAD Interpretation Radiology Orders: 08/29/18 16:53 TRANSVAGINAL [US] Stat - Medication Orders Current Medication Orders: Sodium Chloride (Sodium Chloride 0.9%) 1,000 mls @ 1,000 mls/hr IV .Q1H STA Stop: 08/29/18 17:51 Discontinued Medications Acetaminophen (Tylenol 650mg/20.3ml Solution Ud) 975 mg PO STAT STA Stop: 08/29/18 16:54 - Scribe Statement The provider has reviewed the documentation as recorded by the Rudy Carver Provider Scribe Attestation: All medical record entries made by the Scribe were at my direction and personally dictated by me. I have reviewed the chart and agree that the record accurately reflects my personal performance of the history, physical exam, medical decision making, and the department course for this patient. I have also personally directed, reviewed, and agree with the discharge instructions and disposition. Disposition/Present on Arrival - Present on Arrival Any Indicators Present on Arrival: No History of DVT/PE: No History of Uncontrolled Diabetes: No Urinary Catheter: No History of Decub. Ulcer: No History Surgical Site Infection Following: None - Disposition Have Diagnosis and Disposition been Completed?: Yes Diagnosis: Pelvic pain Disposition: AGAINST MEDICAL ADVICE Disposition Time: 09:00 Condition: UNKNOWN Discharge Instructions (ExitCare): Acute Abdomen (Belly Pain), Adult (DC), Ovarian Cyst (DC), Acute Pelvic Pain (DC) Additional Instructions: return to er with worsening symtoms or concerns. you are declining repeat us and further imaging andpossible transfer. return to any er with worsening symptoms or concerns. Prescriptions: RX: Ibuprofen [Motrin Tab] 600 mg PO Q8 PRN #15 tab PRN Reason: Pain, Moderate (4-7) Referrals: Glenis Ahuja MD [Staff Provider] - Follow up with primary Forms: [employer] ([place])
[2018-08-29 17:35] LABS: BASO # 0.02 K/mm3 (0.0-2.0); BASO % 0.4 % (0.0-3.0); EOS # 0.2 (0.0-0.7); EOS % 4.8 % (1.5-5.0); GRAN # 2.07 (1.4-6.5); GRAN % 41.1 % (50.0-68.0); HEMOGLOBIN 12.1 g/dL (12.0-16.0); LYMPH # 2.3 (1.2-3.4); MEAN CELL VOLUME 83.4 fl (80.0-105.0); MEAN CORPUSCULAR HEMOGLOBIN 26.5 pg (25.0-35.0); MEAN CORPUSCULAR HGB CONC 31.8 g/dl (31.0-37.0); MEAN PLATELET VOLUME 9.5 fl (7.0-11.0); MONO # 0.4 (0.1-0.6); MONO % 7.7 % (1.0-6.0); RBC 4.57 10^6/uL (3.5-6.1); RED CELL DISTRIBUTION WIDTH 12.8 % (11.5-14.5)
[2018-08-29 17:36] LABS: URINE BILIRUBIN NEGATIVE (NEGATIVE); URINE BLOOD LARGE (NEGATIVE); URINE GLUCOSE (UA) NEGATIVE (NEGATIVE); URINE LEUKOCYTE ESTERASE NEGATIVE Leu/uL (NEGATIVE); URINE PROTEIN TRACE mg/dL (<30 mg/dL); URINE UROBILINOGEN 0.2 E.U./dL (<1 E.U./dL)
[2018-08-29 17:40] LABS: INR 1.07; PARTIAL THROMBOPLASTIN TIME 29.8 Seconds (25.1-36.5); PROTHROMBIN TIME 12.2 SECONDS (9.4-12.5)
[2018-08-29 17:41] LABS: URINE APPEARANCE CLEAR (CLEAR); URINE COLOR YELLOW (YELLOW)
[2018-08-29 17:42] LABS: HCG,QUALITATIVE URINE NEGATIVE (NEGATIVE)
[2018-08-29 17:45] LABS: URINE BACTERIA MANY (NEG); URINE RBC 25 - 30 /hpf (0-2)
[2018-08-29 18:23] LABS: ALB/GLOB RATIO 1.3 (1.1-1.8); ALBUMIN 4.2 g/dL (3.0-4.8); ALT/SGPT 37 U/L (7-56); AST/SGOT 30 U/L (14-36); BLOOD UREA NITROGEN 13 mg/dL (7-21); CALCIUM 9.2 mg/dL (8.4-10.5); GFR NON-AFRICAN AMERICAN > 60; LIPASE 188 U/L (23-300)
[2018-08-29 19:54] VITALS: BP 128/76; PULSE 68; O2SAT 98
--- NOTE | 2018-08-30 09:21 | US ---
Date of service: 08/29/2018 HISTORY: Left-sided pelvic pain. History of dermoid. LMP 07/25/2018. COMPARISON: 08/23/2018 CT abdomen and pelvis. Summary of findings on the comparison examination:There is a 4.3 x 5.8 cm dermoid on the left side of the pelvis 05/25/2018 pelvic ultrasound Summary of findings on the comparison examination: Solid echogenic mass 5.9 x 5.6 x 4.8 cm consistent with known dermoid Normal flow. TECHNIQUE: Transvaginal only. Real -time technique with 2D, duplex and color Doppler FINDINGS: UTERUS: Measures 3.1 x 7.3 cm. Normal in size, heterogeneous echo characteristics. No fibroid or other mass lesion seen. ENDOMETRIUM: Measures 7.8 mm in diameter. No ultrasound findings to suggest gestational sac, fluid, debris, mass or polyp or other pathologic process within the endometrium. CERVIX: No cervical abnormality identified. RIGHT OVARY: Measures 2.9 x 3.6 x 5.6 cm. No solid mass. Normal flow. Multiple subcentimeter follicles. LEFT OVARY: Not visible. FREE FLUID: Trace free fluid identified in the pelvis/cul de sac. OTHER FINDINGS: None. IMPRESSION: Unremarkable uterus, endometrial echo complex and right ovary. Nondiagnostic assessment of the left adnexa. Is there a history of recent surgery/left oophorectomy? Concordant results (preliminary interpretation) provided by [facility]. Procedure Completed: 18:20. Preliminary Report: Dictated and Authenticated: 19:36. Final Interpretation: 09:16. August 30, 2018
== END 2018-08-29 19:57 | disposition left against medical advice (07) ==
LOC: ED 16:37
DX: R10.2 Pelvic and perineal pain (principal)
CPT/HCPCS: 76830; 80053; 81001; 83690; 83735; 84703; 85025; 85610; 85730; 96360; 99284; J7030